=== PATIENT | male | born 1945 | race Caucasian/White ===

== ENCOUNTER 2017-09-30 11:48 | Emergency (ER) | payer OTHER ==
[~2017-09-30] VITALS: Ht 167.6 cm; Wt 81.2 kg
[~2017-09-30 11:48] MED LIST: ALLOPURINOL 10100 M2 PO; BACTRIM DS TAB1 EACH PO; CARDURA1 MG PO; CEPHALEXIN 500500 M3 PO; DOXYCYCLINE 10100 MG PO; ETODOLAC500 MG PO; GABAPENTIN 100100 MG PO; IRON325 PO; LISINOPRIL20 MG PO; LODINE 200MG C200 M1 PO; LYRICA 75 MG CA75 MG PO; MEDROLDOSEPACK PO; MOBIC15 MG PO; MS CONTIN15 MG PO; NEXIUM40 MG PO; NITROGLYCERIN0.4 MG SUBLING; NORVASC10 MG PO; PANTOPRAZOLE SO40 M1 PO; TEKTURNA300 MG PO; TIZANIDINE HCL 22 M1 PO; [UNRECOGNIZED DRUG - OTHER] PO
[2017-09-30] MEDS ORDERED: TIAZAC420 MG PO (12:02)
[2017-09-30] MEDS ORDERED: CRESTOR10 MG PO (12:09)
[2017-09-30] MEDS ORDERED: LASIX 40 MG TAB40 M2 PO (12:10)
[2017-09-30] MEDS ORDERED: CARDURA4 MG PO (12:13)
[2017-09-30] MEDS ORDERED: TIZANIDINE HCL2 M1 PO (12:16)
[2017-09-30] MEDS ORDERED: PRADAXA150 MG PO (12:19)
[2017-09-30] MEDS ORDERED: DOXYCYCLINE 10100 MG PO (13:17)
[2017-09-30 13:30] VITALS: BP 125/51
== END 2017-09-30 13:31 | disposition home or self-care (01) ==
LOC: M.ERS 11:48
DX: M10.9 Gout, unspecified (principal); Z88.1 Allergy status to other antibiotic agents